=== PATIENT | female | born 1995 | race Caucasian/White ===

== ENCOUNTER → 2017-07-30 | Outpatient (CLI) | payer BC ==
--- NOTE | ~2017-07-30 | OR ---
ADMIT: 07/30/2017 RM/LOC: [facility] MR#: [id number] [address] [id number] BRODY WILLIAM Jones [address] [place] [id number] Operative/Delivery Room Report SEX: F AGE: 22 : 1995 SURGERY DATE: 07/30/2017 SURGEON: Diane Ríos MD PREOPERATIVE DIAGNOSIS: Primary infertility with possible hydrosalpinx on ultrasound. POSTOPERATIVE DIAGNOSIS: Primary infertility with possible hydrosalpinx on ultrasound. PROCEDURE: Hysterosalpingogram. ATHLETIC TRAINING INTERNSHIP: None. INDICATION FOR PROCEDURE: The patient is a 22-year-old, 0, white female, who presented to the [facility] for evaluation of infertility. The patient was previously diagnosed with polycystic ovarian syndrome and her was noted to have oligospermia. However, on ultrasound evaluation for infertility treatment, the patient was noted to have an imaging concerning for bilateral hydrosalpinx and therefore a hysterosalpingogram was recommended. DESCRIPTION OF PROCEDURE: The patient was taken to fluoroscopy suite, where informed consent was obtained. She was then positioned in the dorsal lithotomy position. A speculum was placed in the patient's vagina and cervix cleansed with Betadine x3. The anterior lip of the cervix was then grasped with a single-tooth tenaculum. The previously flushed [place] uterine manipulator was then advanced through the cervix and several milliliters of Isovue-300 contrast were injected into the uterine cavity. The uterus was noted to have a normal shape and contour. The bilateral tubes were noted to have normal caliber until the distal ends were reached. There were noted to be bilateral hydrosalpinges. Bilateral hydrosalpinx noted with no spill of contrast through the fallopian tubes into the peritoneal cavity. Manipulation of the uterus revealed that the tubes were indeed distally occluded. All instruments were then removed from the patient's vagina with no bleeding noted from the cervix. The patient was prescribed doxycycline for antibiotic prophylaxis due to the hydrosalpinx. She was encouraged to discuss these findings with her and call the [facility] when they decided how they wanted to proceed. Diane Ríos MD/ hernan JOB #: [id number] CC: Diane Ríos, Attending Physician Mikaela Marks, Family Physician
== END | disposition home or self-care (01) ==
LOC: RAD.S 08:51
PROC: BU12YZZ Fluoroscopy of Bilateral Fallopian Tubes using Other Contrast (ICD-10-PCS; principal; 2017-07-30)
DX: E28.2 Polycystic ovarian syndrome (principal); N94.6 Dysmenorrhea, unspecified; N70.11 Chronic salpingitis